=== PATIENT | male | born 1955 | race Caucasian/White ===

== ENCOUNTER 2016-06-19 04:38 | Emergency (ER) | payer SELFPAY ==
[~2016-06-19] VITALS: Ht 180.3 cm; Wt 108.9 kg
[2016-06-19 04:38] VITALS: BP 144/82; PULSE 92; RESP 16; TEMP 97.6; O2SAT 98
--- NOTE | 2016-06-19 04:38 | NUR ---
Patient seen by at [address] Horn on arrival at chairside.
--- NOTE | 2016-06-19 04:40 | NUR ---
Pt came in for medical screening for an existing warrant. Pt states he has hypertension and hypothyroidism. States he has no pain, N, V, or discomfort. Will continue to monitor. No distress noted.
--- NOTE | 2016-06-19 04:40 | NUR ---
Placed in room Chair . Brought in by P for medical clearance. Report given to KELSEY Peterson.
[2016-06-19 04:58] VITALS: BP 144/82; PULSE 92; RESP 16; TEMP 97.6; O2SAT 98
--- NOTE | 2016-06-19 04:58 | NUR ---
Patient given written and verbal discharge instructions and verbalizes understanding. ER MD discussed with patient the results and treatment provided. Patient in stable condition. ID arm band removed. Patient educated on pain management and to follow up with PMD. Pain Scale 0/10. Opportunity for questions provided and answered.
== END 2016-06-19 04:58 ==
LOC: SED 04:38
DX: Z02.89 Encounter for other administrative examinations (principal); I10 Essential (primary) hypertension; E03.9 Hypothyroidism, unspecified
CPT/HCPCS: 99283